=== PATIENT | male | born 1955 | race African-American/Black ===

== ENCOUNTER 2022-12-02 07:56 | Emergency (ER) | payer OTHER ==
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
[2022-12-02 09:57] VITALS: O2SAT 96
[2022-12-02 09:58] VITALS: BP 129/86; TEMP 98.1
== END 2022-12-02 09:53 | disposition home or self-care (01) ==
LOC: ER 07:56
DX: S09.90XA Unspecified injury of head, initial encounter (principal); F17.200 Nicotine dependence, unspecified, uncomplicated
CPT/HCPCS: 70450; 99284